=== PATIENT | female | born 1970 | race Hispanic/Latino ===

== ENCOUNTER 2024-06-22 04:58 | Emergency (ER) | payer OTHER ==
[~2024-06-22] VITALS: Ht 154.9 cm; Wt 69.4 kg
[2024-06-22] MEDS ORDERED: ACET-66 PO (05:19)
[2024-06-22] MEDS ORDERED: IBUP-2070 PO (05:19)
[2024-06-22 05:27] VITALS: BP 126/63; PULSE 56; RESP 18; TEMP 98.6; O2SAT 99
== END 2024-06-22 05:34 | disposition home or self-care (01) ==
LOC: EDH 04:58
DX: G89.29 Other chronic pain (principal); M54.50 Low back pain, unspecified; Z79.899 Other long term (current) drug therapy
CPT/HCPCS: 99282